=== PATIENT | female | born 1930 | race Caucasian/White ===

== ENCOUNTER 2018-03-13 20:10 | Inpatient (IN) | payer OTHER, BC ==
[~2018-03-13] VITALS: Ht 165.1 cm; Wt 75.0 kg
[~2018-03-13 20:10] MED LIST: ELIQUIS5 MG PO; EVAC-U-GEN8.6 MG PO; LATANOPROST2.5 ML BOTH EYES; METOPROLOL SUCC50 MG PO; MUCINEX600 MG PO; PLAQUENIL200 MG PO; PROAIR HFA8.5 GM IH; SINGULAIR10 MG PO; SYNTHROID200 MCG PO; ULTRAM ER200 MG PO; ULTRAM50 MG PO; VITAMIN B12-FO1 EACH PO; VITAMIN C1000 MG PO; VITAMIN D31000 UNIT PO
[2018-03-13 20:52] LABS: BASOPHIL (%) 0.6 % (0-1); EOSINOPHIL (%) 1.7 % (0-5); EOSINOPHIL COUNT 0.1 K/uL (0-0.3); HEMATOCRIT 33.1 % (36.0-46.0); HEMOGLOBIN 10.9 G/DL (11.9-15.5); IMMATURE GRANULOCYTE (%) 0.4 % (0.0-0.7); LYMPHOCYTE (%) 37.6 % (15-42); LYMPHOCYTE COUNT 2.7 K/uL (1.0-2.8); MCH 29.9 PG (29.0-34.0); MCHC 32.9 G/DL (30.0-36.0); MCV 90.7 FL (83-99); MONOCYTE (%) 7.2 % (3-12); MONOCYTE COUNT 0.5 K/uL (0-0.8); NEUTROPHIL (%) 52.5 % (45-76); NEUTROPHIL COUNT 3.8 K/uL (1.8-6.4); PLATELET COUNT 233 K/uL (156-360); RBC DIS.WIDTH-SD 46.9 % (39-53); RED BLOOD COUNT 3.65 M/uL (3.80-5.20); WHITE BLOOD COUNT 7.3 K/uL (4.1-10.2)
[2018-03-13 20:58] LABS: INTER. NORMALIZED RATIO 1.3
[2018-03-13 21:01] LABS: PTT 31.8 SEC (25-37)
[2018-03-13 21:02] LABS: ALBUMIN 3.5 g/dL (3.2-4.8); CHLORIDE 108 mEq/L (99-109); MAGNESIUM 2.1 mg/dL (1.3-2.7); POTASSIUM 4.2 mEq/L (3.7-5.4); SODIUM 140 mEq/L (136-147)
[2018-03-13 21:04] LABS: GLUCOSE 114 mg/dL (70-99); TOTAL PROTEIN 7.5 g/dL (6.4-8.3)
[2018-03-13 21:06] LABS: TOTAL BILIRUBIN 0.2 mg/dL (0.0-1.0)
[2018-03-13 21:08] LABS: ALKALINE PHOSPHATASE 83 IU/L (3-129); CREATININE 0.8 mg/dL (0.6-1.3); GFR ESTIMATE (CALCULATED) > 59 mL/min/
[2018-03-13 21:09] LABS: AST (GOT) 20 IU/L (2-34); UREA NITROGEN (BUN) 16 mg/dL (9-23)
[2018-03-13 21:11] LABS: ALT (GPT) 11 IU/L (3-49)
[2018-03-13 21:12] LABS: TROP-I INTERPRETATION NEGATIVE; TROPONIN-I < 0.01 ng/mL (0.0-0.30)
[2018-03-13 22:11] LABS: APPEARANCE CLEAR ((CLEAR)); BILIRUBIN NEGATIVE; BLOOD NEGATIVE; COLOR YELLOW ((YELLOW)); GLUCOSE (STRIP) NEGATIVE; KETONES NEGATIVE; LEUKOCYTES NEGATIVE; NITRITE NEGATIVE; PROTEIN (STRIP) NEGATIVE; SPECIFIC GRAVITY 1.019 (1.000-1.030); UCUL ADDED? NO; UROBILINOGEN 0.2 MG/DL (0.2-1.0)
[2018-03-13] MEDS ORDERED: TRAMADOL HCL200 MG PO (22:17)
[2018-03-13] MEDS ORDERED: MONTELUKAST SOD10 MG PO (22:19)
[2018-03-13] MEDS ORDERED: HYDROXYCHLOROQ200 MG PO (22:21)
[2018-03-13] MEDS ORDERED: BACTRIM,SEPT1 TABLET PO (22:22)
[2018-03-13] MEDS ORDERED: LUMIGAN 0.50 DROP/22 BOTH EYES (22:23)
[2018-03-14 04:10] VITALS: BP 162/79
[2018-03-14 07:51] VITALS: BP 139/68
[2018-03-14 12:00] VITALS: BP 189/79
[2018-03-14 20:09] VITALS: BP 136/98
[2018-03-14 23:17] VITALS: BP 143/74
[2018-03-15 03:52] VITALS: BP 125/99
[2018-03-15 08:11] VITALS: BP 178/70
[2018-03-15 19:41] VITALS: BP 142/83
[2018-03-15 23:58] VITALS: BP 147/65
[2018-03-16 05:28] VITALS: BP 139/76
[2018-03-16 06:01] LABS: HEMATOCRIT 31.8 % (36.0-46.0); HEMOGLOBIN 10.6 G/DL (11.9-15.5); MCV 87.6 FL (83-99)
[2018-03-16 08:22] VITALS: BP 167/72
[2018-03-16 09:01] LABS: MCH 29.9 PG (29.0-34.0); MCHC 33.7 G/DL (30.0-36.0); PLATELET COUNT 214 K/uL (156-360); RBC DIS.WIDTH-CV 13.6 % (11.8-14.6); RED BLOOD COUNT 3.51 M/uL (3.80-5.20); WHITE BLOOD COUNT 9.3 K/uL (4.1-10.2)
[2018-03-16 12:13] VITALS: BP 146/74
[2018-03-16 16:05] VITALS: BP 139/64
[2018-03-16 16:44] LABS: APPEARANCE CLEAR ((CLEAR)); BILIRUBIN NEGATIVE; BLOOD NEGATIVE; COLOR YELLOW ((YELLOW)); GLUCOSE (STRIP) NEGATIVE; KETONES 5; LEUKOCYTES LARGE; NITRITE NEGATIVE; PROTEIN (STRIP) NEGATIVE; UROBILINOGEN 0.2 MG/DL (0.2-1.0)
[2018-03-16 17:02] LABS: BACTERIA RARE /HPF; EPITHELIAL CELLS 2+ /HPF; HYALINE CASTS 0-5 /LPF; MUCUS NONE SEEN /LPF; UCUL ADDED? YES; WHITE BLOOD CELLS TNTC /HPF (0-5)
[2018-03-16 20:17] VITALS: BP 172/74
[2018-03-17 00:01] VITALS: BP 172/64
[2018-03-17 08:39] VITALS: BP 133/69
[2018-03-17 18:15] VITALS: BP 193/84
[2018-03-17 23:39] VITALS: BP 175/74
[2018-03-17 23:44] VITALS: BP 154/72
[2018-03-18 07:52] VITALS: BP 140/69
[2018-03-18 15:49] VITALS: BP 136/64
[2018-03-18 23:31] VITALS: BP 128/58
[2018-03-19 03:57] VITALS: BP 129/64
[2018-03-19 08:09] VITALS: BP 148/67
[2018-03-19] MEDS ORDERED: TRAMADOL HCL50 MG PO (09:44)
[2018-03-19] MEDS ORDERED: LEVAQUIN500 MG PO (09:45)
== END 2018-03-19 16:49 | DRG 469 ==
LOC: EME → EDBD 20:10 → EME 20:10 → EDOF 03-14 00:02 → 3EAST 03-14 00:02 → ENRESERV 03-14 00:05 → 3EAST 03-14 03:53
PROVIDERS: Emergency Medicine; Hospitalist; Orthopaedic Surgery
PROC: 0SRR0JA Replacement of Right Hip Joint, Femoral Surface with Synthetic Substitute, Uncemented, Open Approach (ICD-10-PCS; principal; 2018-03-15)
DX: S72.001A Fracture of unspecified part of neck of right femur, initial encounter for closed fracture (principal); S09.90XA Unspecified injury of head, initial encounter; T88.4XXA Failed or difficult intubation, initial encounter; J18.9 Pneumonia, unspecified organism; R33.9 Retention of urine, unspecified; I42.9 Cardiomyopathy, unspecified; M06.9 Rheumatoid arthritis, unspecified; I48.0 Paroxysmal atrial fibrillation; M79.89 Other specified soft tissue disorders; J45.909 Unspecified asthma, uncomplicated; I10 Essential (primary) hypertension; E03.9 Hypothyroidism, unspecified; K59.00 Constipation, unspecified; M81.0 Age-related osteoporosis without current pathological fracture; W01.0XXA Fall on same level from slipping, tripping and stumbling without subsequent striking against object, initial encounter; Y92.009 Unspecified place in unspecified non-institutional (private) residence as the place of occurrence of the external cause; Y95 Nosocomial condition; Z96.653 Presence of artificial knee joint, bilateral; Z79.01 Long term (current) use of anticoagulants; Z87.440 Personal history of urinary (tract) infections; Z87.891 Personal history of nicotine dependence
CPT/HCPCS: 70450; 71045; 73140; 73502; 80053; 81003; 83735; 84484; 85014; 85018; 85025; 85027; 85610; 85730; 87040; 87077; 87086; 87186; 93005; 93306; 94799; 97530 GP; 99281; 99285; J0690; J1100; J1170; J1644; J1650; J2250; J2405; J2543; J2710; J3010; J3370; J7050; J7643